=== PATIENT | female | born 1985 | race Caucasian/White ===

== ENCOUNTER 2020-12-03 21:05 | Emergency (ER) | payer BC ==
--- NOTE | 2020-12-03 22:38 | RAD REPORT ---
EXAM DESCRIPTION: RAD - Ankle Right 3 View - 12/03/2020 10:20 pm CLINICAL HISTORY: Pain;Swelling COMPARISON: No comparisons FINDINGS: Mild soft tissue swelling is seen about the ankle. No acute fracture is seen.
[2020-12-03] MEDS ORDERED: TRAMADOL HCL 50 MG TAB ONE (23:58)
--- NOTE | 2020-12-04 00:18 | ER ---
Nurse's Notes [facility] Name: Chata Tamez Age: 35 yrs Sex: Female : 1985 Arrival Date: 12/03/2020 Time: 21:08 Bed 27 Private MD: Diagnosis: Sprain of unspecified ligament of right ankle Presentation: 12/03 21:22 Chief complaint: Patient states: Reports she fell in a hole about 1900 tonight; lp1 swelling to lateral side of right foot, unable to bear weight. Coronavirus screen: Client denies travel out of the [place] in the last 14 days. At this time, the client does not indicate any symptoms associated with coronavirus-19. Ebola Screen: No symptoms or risks identified at this time. Risk Assessment: Do you want to hurt yourself or someone else? Patient reports no desire to harm self or others. Onset of symptoms was December 03, 2020 at 19:00. 21:22 Method Of Arrival: Wheelchair lp1 21:22 Acuity: LEAH 4 lp1 21:25 Initial Sepsis Screen: Does the patient meet any 2 criteria? No. Patient's initial lp1 sepsis screen is negative. Does the patient have a suspected source of infection? No. Patient's initial sepsis screen is negative. CHIP PERSON: 21:24 LMP N/A - control method lp1 Historical: - Allergies: 21:24 Erythromycin; lp1 21:24 Codeine; lp1 - Home Meds: 21:24 None [Active]; lp1 - PMHx: 21:24 None; lp1 - PSHx: 21:24 None; lp1 - Immunization history:: Adult Immunizations up to date. - Social history:: Smoking status: Patient denies any tobacco usage or history of. Screenin:25 Abuse screen: Denies threats or abuse. Denies injuries from another. Nutritional lp1 screening: No deficits noted. Tuberculosis screening: No symptoms or risk factors identified. 23:28 Fall Risk None identified. bb Assessment: 23:28 General: Appears in no apparent distress. uncomfortable, Behavior is calm, cooperative. bb Pain: Complains of pain in right ankle. Neuro: Level of Consciousness is awake, alert, obeys commands, Oriented to person, place, time, situation. Cardiovascular: Capillary refill < 3 seconds Patient's skin is warm and dry. Respiratory: Airway is patent Respiratory effort is even, unlabored, Respiratory pattern is regular. GI: No signs and/or symptoms were reported involving the gastrointestinal system. Derm: Skin is pink, warm \T\ dry. Musculoskeletal: Swelling present in right ankle Reports pain in right ankle. 12/04 01:12 Reassessment: Patient and/or family updated on plan of care and expected duration. Pain bb level reassessed. Patient is alert, oriented x 3, equal unlabored respirations, skin warm/dry/pink. splint to right ankle in place pt verbalized understanding of and agrees to plan of care discharge instructions given pt assisted to exit via wheelchair accompanied by family. Vital Signs: 12/03 21:25 BP 141 / 86; Pulse 84; Resp 18; Temp 98.4(TE); Pulse Ox 100% on R/A; Weight 77.11 kg lp1 (R); Height 5 ft. 7 in. (170.18 cm); Pain 7/10; 12/04 01:13 Pulse 83; Resp 16 S; Temp 97.9(TE); Pulse Ox 98% on R/A; bb 12/03 21:25 Body Mass Index 26.63 (77.11 kg, 170.18 cm) lp1 ED Course: 12/03 21:08 Patient arrived in ED. es 21:23 Triage completed. lp1 21:23 Arm band placed on. lp1 22:20 Ankle Right 3 View In Process Unspecified. EDMS 22:51 Josep Schroeder NP is PHCP. pm1 22:51 Antonio Lomeli MD is Attending Physician. pm1 23:27 Kassi Slaughter RN is Primary Nurse. bb 23:28 Patient has correct armband on for positive identification. bb 23:55 Orthoglass splint: stirrup splint applied on right leg. 4 12/04 01:14 No provider procedures requiring assistance completed. Patient did not have IV access bb during this emergency room visit. Administered Medications: 12/03 23:44 Drug: traMADol 50 mg Route: PO; bb 12/04 00:15 Follow up: Response: No adverse reaction; RASS: Alert and Calm (0) bb Outcome: 00:17 Discharge ordered by . pm1 01:14 Discharged to home via wheelchair, with crutches, with family. bb 01:14 Condition: stable 01:14 Discharge instructions given to patient, Instructed on discharge instructions, follow up and referral plans. medication usage, Demonstrated understanding of instructions, follow-up care, medications, Prescriptions given X 1. 01:15 Patient left the ED. bb Signatures: Dispatcher [employer] EDEileen White Brenda, RN RN bb Ayanna Metz RN RN lp1 Josep Schroeder NP RESIDENTIAL SUBSTANCE ABUSE COUNSELOR 1 Ethan Bynum [facility] Corrections: (The following items were deleted from the chart) 12/03 21:25 21:24 LMP N/A - Irregular menses lp1 lp1
--- NOTE | 2020-12-04 00:18 | EDPHYS ---
Physician Documentation [facility] Name: Chata Tamez Age: 35 yrs Sex: Female : 1985 Arrival Date: 12/03/2020 Time: 21:08 Bed 27 Private MD: ED Physician Antonio Lomeli HPI: 12/04 00:16 This 35 yrs old Female presents to ER via Wheelchair with complaints of Ankle pm1 Injury. 00:16 The patient presents with pain, that is acute. The complaints affect the right ankle. pm1 Onset: The symptoms/episode began/occurred today. Context: The problem was sustained outdoors, resulted from the patient stepping on hole The mechanism of injury is unknown. The patient can partially bear weight on the affected extremity. Associated signs and symptoms: Pertinent positives: swelling, of the lasteral aspect of right ankle, Pertinent negatives: numbness, tingling. Modifying factors: The symptoms are alleviated by elevation of extremity, the symptoms are aggravated by weight bearing, movement. Severity of symptoms: in the emergency department the symptoms are unchanged. The patient has not experienced similar symptoms in the past. The patient has not recently seen a physician. MODEL PHOTOGRAPHERS': 12/03 21:24 LMP N/A - control method lp1 Historical: - Allergies: 21:24 Erythromycin; lp1 21:24 Codeine; lp1 - Home Meds: 21:24 None [Active]; lp1 - PMHx: 21:24 None; lp1 - PSHx: 21:24 None; lp1 - Immunization history:: Adult Immunizations up to date. - Social history:: Smoking status: Patient denies any tobacco usage or history of. ROS: 12/04 00:16 Constitutional: Negative for fever, chills, and weight loss. pm1 Cardiovascular: Negative for chest pain, palpitations, and edema, Respiratory: Negative for shortness of breath, cough, wheezing, and pleuritic chest pain. Skin: Negative for injury, rash, and discoloration. MS/extremity: Positive for pain, swelling, tenderness, of the left lateral ankle, Negative for decreased range of motion, deformity. All other systems are negative. Exam: 00:16 Constitutional: This is a well developed, well nourished patient who is awake, alert, pm1 and in no acute distress. Head/Face: Normocephalic, atraumatic. 00:16 Skin: Warm, dry with normal turgor. Normal color with no rashes, no lesions, and no evidence of cellulitis. 00:16 Cardiovascular: Rate: normal, Rhythm: regular, Pulses: no pulse deficits are appreciated. 00:16 Respiratory: Exam negative for acute changes, respiratory distress, shortness of breath. 00:16 Musculoskeletal/extremity: Extremities: grossly normal except: noted in the left lateral ankle: swelling, tenderness, There is no evidence of decreased ROM, deformity. Vital Signs: 12/03 21:25 BP 141 / 86; Pulse 84; Resp 18; Temp 98.4(TE); Pulse Ox 100% on R/A; Weight 77.11 kg lp1 (R); Height 5 ft. 7 in. (170.18 cm); Pain 12/30; 12/04 01:13 Pulse 83; Resp 16 S; Temp 97.9(TE); Pulse Ox 98% on R/A; bb 12/03 21:25 Body Mass Index 26.63 (77.11 kg, 170.18 cm) lp1 Procedures: 00:58 Splinting: Splint applied to left ankle using Orthoglass splint, applied by tech. pm1 Examined by me, post splint application: neurovascular intact, 2+ distal pulses palpable, brisk capillary refill noted, Patient tolerated well. MDM: 12/03 23:18 Patient medically screened. pm1 12/04 00:16 Data reviewed: vital signs. Data interpreted: Pulse oximetry: on room air is 100 %. pm1 Interpretation: normal. Counseling: I had a detailed discussion with the patient and/or guardian regarding: the historical points, exam findings, and any diagnostic results supporting the discharge/admit diagnosis, radiology results, the need for outpatient follow up, to return to the emergency department if symptoms worsen or persist or if there are any questions or concerns that arise at home. 00:19 ED course: [place] reviewed. No results found. pm1 12/03 22:03 Order name: Ankle Right 3 View; Complete Time: 23:03 EDMS 12/03 23:18 Order name: Splint - Ankle: Orthoglass: Stirrup; Complete Time: 23:55 pm1 12/03 23:18 Order name: Crutches; Complete Time: 23:55 pm1 Administered Medications: 12/03 23:44 Drug: traMADol 50 mg Route: PO; bb 12/04 00:15 Follow up: Response: No adverse reaction; RASS: Alert and Calm (0) bb Disposition: 12/04/20 00:17 Discharged to Home. Impression: Sprain of unspecified ligament of right ankle. - Condition is Stable. - Discharge Instructions: Ankle Sprain, Cast or Splint Care, Adult, Crutch Use. - Prescriptions for Tramadol 50 mg Oral Tablet - take 1 tablet by ORAL route every 8 hours as needed; 12 tablet. - Medication Reconciliation Form, Thank You Letter, Antibiotic Education, Prescription Opioid Use form. - Follow up: Emergency Department; When: As needed; Reason: Worsening of condition. Follow up: Private Physician; When: 2 - 3 days; Reason: Recheck today's complaints, Continuance of care, Re-evaluation by your physician. - Problem is new. - Symptoms have improved. Signatures: Dispatcher [employer] [facility] Kassi Slaughter RN RN bb Ayanna Metz RN RN lp1 Josep Schroeder NP HARDNESS TESTER pm1 Corrections: (The following items were deleted from the chart) 12/03 22:03 21:28 Foot Right 3 View+RAD.[email or web address].[email or web address] ordered. [facility] 12/04 01:15 00:17 12/04/2020 00:17 Discharged to Home. Impression: Sprain of unspecified ligament bb of right ankle. Condition is Stable. Forms are Medication Reconciliation Form, Thank You Letter, Antibiotic Education, Prescription Opioid Use. Follow up: Emergency Department; When: As needed; Reason: Worsening of condition. Follow up: Private Physician; When: 2 - 3 days; Reason: Recheck today's complaints, Continuance of care, Re-evaluation by your physician. Problem is new. Symptoms have improved. pm1
[2020-12-04 02:08] VITALS: BP 141/86
[2020-12-04 02:10] VITALS: TEMP 97.9; O2SAT 98
== END 2020-12-04 01:15 | disposition home or self-care (01) ==
LOC: ER 21:05
PROC: 2W3QX1Z Immobilization of Right Lower Leg using Splint (ICD-10-PCS; principal; 2020-12-04)
DX: S93.401A Sprain of unspecified ligament of right ankle, initial encounter (principal); X58.XXXA Exposure to other specified factors, initial encounter; Y92.89 Other specified places as the place of occurrence of the external cause; Z88.3 Allergy status to other anti-infective agents; Z88.5 Allergy status to narcotic agent
CPT/HCPCS: 99284